=== PATIENT | female | born 1990 | race Caucasian/White ===

== ENCOUNTER 2017-10-28 11:05 | Emergency (ER) | payer OTHER, SELFPAY ==
[2017-10-28 11:16] VITALS: BP 115/77; PULSE 78; RESP 20; TEMP 36.8; O2SAT 100; BMI 22.8
--- NOTE | 2017-10-28 11:54 | ED_ITS ---
HPI - General Chief complaint: Urogenital-Female Stated complaint: 12 wks /bleeding Time Seen by Provider: 10/28/17 11:53 Source: patient Mode of arrival: ambulatory Limitations: no limitations History of Present Illness HPI Narrative: 27-year-old female Rh positive by her report approximately 12 weeks EGA here for evaluation of vaginal bleeding. Patient states that it started this morning. She has to wear pads. No urinary symptoms. Did have sexual intercourse last evening. No bowel symptoms. Minimal if any cramping. Had this same symptoms at 6 weeks EGA and had a confirmed IUP at that time. [place] Patient : Yes Related Data Home Medications Medication Instructions Recorded Confirmed VIT#96/FERROUS FUM/FA #0 02/19/16 ( Vitamin) Previous Rx's Medication Instructions Recorded hydrocodone-acetaminophen [[place]] 1 tab PO Q4HP PRN #10 tab 02/19/16 promethazine 25 mg PO Q6HP PRN #10 tab 02/19/16 hydrocodone-acetaminophen 0 tab PO Q6HP PRN #15 tab 06/12/16 metoclopramide HCl 10 mg PO TIDAC #14 tab 06/12/16 ondansetron [Zofran ODT] 4 mg SUBLINGUAL Q6HP PRN #20 odt 06/12/16 Allergies Allergy/AdvReac Type Severity Reaction Status Date / Time adhesive tape [ADHESIVE TAPE] Allergy Unknown RASH Verified 10/28/17 11:21 [place] And Derivatives Allergy Unknown VOMITING Unverified 09/19/17 12:28 [CITRUS AND DERIVATIVES] oxycodone [From PERCOCET] AdvReac Unknown VOMITING Unverified 09/19/17 12:28 Review of Systems Constitutional Denies chills, Denies fever(s), Denies lethargy and Denies weakness Gastrointestinal Gastrointestinal: Denies abdominal pain, Denies change in bowel habits, Denies diarrhea, Denies nausea and Denies vomiting Genitourinary Comments: Vaginal spotting no urinary symptoms Musculoskeletal Denies back pain, Denies muscle weakness, Denies numbness and Denies tingling Integumentary/Breasts Denies pruritus, Denies erythema, Denies rash and Denies wounds Neurologic Denies numbness, Denies tingling and Denies weakness Hematologic/Lymphatic Denies easy bruising PMFSH - Past Medical History Medical history: Reports no medical history Surgical history: Reports no surgical history Patient : Yes Psychiatric history: Reports no psych history Exam Initial Vital Signs Initial Vital Signs: Vital Signs Temperature 98.2 F 10/28/17 11:16 Pulse Rate 78 10/28/17 11:16 Respiratory Rate 20 10/28/17 11:16 Blood Pressure 115/77 10/28/17 11:16 Pulse Oximetry 100 10/28/17 11:16 Cardio Rate: regular rate Heart Sounds: no murmurs Pulses: normal peripheral pulses GI Inspection: non-distended Palpation: soft, no hepatosplenomegaly and No pulsatile mass Skin General: no rashes or lesions noted, No jaundice and No petechiae Neuro General: alert, oriented x3, gait normal and no focal motor deficits Speech: speech normal Motor: strength 5/5 throughout Sensory Exam: no sensory deficits noted Extrem General: full ROM, no clubbing, cyanosis or edema, no pedal edema and no calf tenderness Course Orders Ordered: ED Orders 10/28/17 11:42 Urinalysis and Microscopic Stat 10/28/17 11:53 ABO RH Type Stat 10/28/17 11:54 HCG Quantitative Stat 10/28/17 12:23 US OB <= 14 weeks fetus Stat Vital Signs - 8 hr 10/28/17 11:16 10/28/17 13:21 Temperature 98.2 F Pulse Rate 78 78 Respiratory Rate 20 13 Blood Pressure 115/77 Blood Pressure [Left Arm] 111/66 Pulse Oximetry 100 100 MDM - OB/Uterine Contractions Lab Data Attestation: I reviewed the patient's lab results. Lab Results 10/28/17 Range/Units 11:42 Urine Color Yellow Urine Appearance Clear Urine pH 7.5 (4.5-8.0) Ur Specific [place] 1.010 (1.000-1.035) Urine Protein Negative (Negative) Urine Glucose (UA) Negative (Normal) g/dL Urine Ketones Negative (NEGATIVE) Urine Occult Blood 3+ H (Negative) Urine Nitrate Negative (NEGATIVE) Urine Bilirubin Negative (NEGATIVE) Urine Urobilinogen 0.2 (0.2) E.U./dL Ur Leukocyte Esterase Negative (NEGATIVE) Urine RBC 1-5/hpf (0-5/HPF) Ur Squamous Epith Cells 0-1 /hpf Ur Culture Indicated? Cult not indicated Micro UA Comment Not Reportable Imaging Data Pelvic ultrasound: Radiologist's impression: OUTSIDE/PRIOR DATING DATA: Last menstrual period (LMP): 08/03/17. LMP-based estimated date of delivery (MELIA): 05/10/18. First dating scan (date and location): 09/17/17. Estimated date of delivery (MELIA) from first dating scan: 05/10/18. TECHNIQUE: Real-time scanning was performed of the fetus and maternal pelvic organs, with image documentation. Endovaginal scanning was also performed to better visualize the fetus and maternal ovaries. COMPARISON: [facility], , OB COMPLETE LESS THAN 14 WKS, 09/17/2017, 18: 46. FINDINGS: Embryo: There is a single intrauterine redemonstrated with a heart rate 158 beats per minute. The crown-rump length measures 5.9 cm corresponding to a gestational age of 12 weeks 3 days. Estimated gestational age from initial ultrasound is 12 weeks 2 days. There is a complete placenta previa noted. No turner-placental fluid collections to suggest placental abruption or subchorionic hemorrhage.. Maternal organs: Ovaries were not evaluated. Limited images through the kidneys demonstrate no hydronephrosis. IMPRESSION: 1. Single living uterine demonstrating interval growth with a calculated gestational age of 12 weeks 3 days. 2. No evidence of placenta abruption or subchorionic hematomas. 3. Placenta previa noted. The finding is nonspecific at this gestational age and continued followup is recommended. 4. Ovaries not evaluated. If there is adnexal pain or other clinical suspicion of ovarian pathology, a repeat study may be performed. Dictated by: Ken Cheatham M.D. on 10/28/2017 at 13:13 MDM Narrative Medical decision making narrative: Rh positive. No need for RhoGAM. IUP seen 12 weeks 3 days. Does have placenta previa I suspect that with intercourse last evening in the previa that this is the source of the bleeding. Discussed this with the patient. Discussed return precautions. Discussed follow-up. She expressed understanding and agreement with plan Discharge Plan Departure Patient Disposition: Home, Self-Care Clinical Impression: Threatened miscarriage Instructions: DI for Threatened Activity Restrictions/Additional Instructions: Continue all other medications. Keep all scheduled medical follow-up appointments. Return to the emergency department for any new or worsening symptoms Prescriptions: No Action VIT#96/FERROUS FUM/FA ( Vitamin) Qty: 0 RF: 0 hydrocodone-acetaminophen [[place]] 5 MG/325 MG tablet 1 tab PO Q4HP PRNQty: 10 RF: 0 promethazine 25 MG tablet 25 mg PO Q6HP PRNQty: 10 RF: 0 hydrocodone-acetaminophen 5 MG/325 MG tablet PO Q6HP PRNQty: 15 RF: 0 ondansetron [Zofran ODT] 4 MG tablet,disintegrating 4 mg Sublingual Q6HP PRNQty: 20 RF: 0 metoclopramide HCl 10 MG tablet 10 mg PO TIDAC Qty: 14 RF: 0
[2017-10-28 12:10] LABS: Appearance Urine UA CLEAR; Bilirubin Urine UA NEGATIVE (NEGATIVE); Color Urine UA YELLOW; Glucose Urine UA NEGATIVE (Normal); Ketones Urine UA NEGATIVE (NEGATIVE); Leukocyte Esterase Urine UA NEGATIVE (NEGATIVE); Nitrite Urine UA NEGATIVE (NEGATIVE); Occult Blood Urine UA 3+ (Negative); Protein Urine UA NEGATIVE (Negative); Urobilinogen Urine UA 0.2 E.U./dL (0.2); pH Urine UA 7.5 (4.5-8.0)
[2017-10-28 12:21] LABS: RBC Urine 1-5/HPF (0-5/HPF); Squamous Epithelial Cell Urine 0-1 /HPF
[2017-10-28 12:22] LABS: Culture Indicated Urine Cult Not Indicated
--- NOTE | 2017-10-28 12:23 | DI.US.S_ITS ---
PROCEDURE: US OB <= 14 WEEKS FETUS INDICATIONS: 12 weeks EGA with vaginal bleeding OUTSIDE/PRIOR DATING DATA: Last menstrual period (LMP): 08/03/17. LMP-based estimated date of delivery (MELIA): 05/10/18. First dating scan (date and location): 09/17/17. Estimated date of delivery (MELIA) from first dating scan: 05/10/18. TECHNIQUE: Real-time scanning was performed of the fetus and maternal pelvic organs, with image documentation. Endovaginal scanning was also performed to better visualize the fetus and maternal ovaries. COMPARISON: [facility], OB COMPLETE LESS THAN 14 WKS, 09/17/2017, 18:46. FINDINGS: Embryo: There is a single intrauterine redemonstrated with a heart rate 158 beats per minute. The crown-rump length measures 5.9 cm corresponding to a gestational age of 12 weeks 3 days. Estimated gestational age from initial ultrasound is 12 weeks 2 days. There is a complete placenta previa noted. No turner-placental fluid collections to suggest placental abruption or subchorionic hemorrhage.. Maternal organs: Ovaries were not evaluated. Limited images through the kidneys demonstrate no hydronephrosis. IMPRESSION: 1. Single living uterine demonstrating interval growth with a calculated gestational age of 12 weeks 3 days. 2. No evidence of placenta abruption or subchorionic hematomas. 3. Placenta previa noted. The finding is nonspecific at this gestational age and continued followup is recommended. 4. Ovaries not evaluated. If there is adnexal pain or other clinical suspicion of ovarian pathology, a repeat study may be performed. Dictated by: Ken Cheatham M.D. on 10/28/2017 at 13:13 Approved by: Ken Cheatham M.D. on 10/28/2017 at 13:19
[2017-10-28 13:21] VITALS: BP 111/66; PULSE 78; RESP 13; O2SAT 100
== END 2017-10-28 13:50 | disposition home or self-care (01) ==
PROVIDERS: Emergency Provider Emergency Medicine
DX: O20.0 Threatened abortion (principal); Z3A.12 12 weeks gestation of pregnancy
CPT/HCPCS: 76801; 76817; 81001; 81003; 81025; 99283; 99284

== ENCOUNTER 2017-12-14 19:05 | Emergency (ER) | payer OTHER, SELFPAY ==
[2017-12-14 19:17] VITALS: BP 107/69; PULSE 77; RESP 18; TEMP 36.3; O2SAT 100; BMI 23.8
--- NOTE | 2017-12-14 19:27 | ED.PREGNANCY ---
HPI - General Chief complaint: OB/Uterine Contractions Stated complaint: CRAMPING, 19 WEEKS Time Seen by Provider: 12/14/17 19:25 Source: patient Mode of arrival: ambulatory Limitations: no limitations History of Present Illness HPI Narrative: The patient is 5 para 1, currently 19 weeks . She was seen here previously, an ultrasound was done that is consistent with dates. There was evidence of placental previa on that ultrasound. She comes in tonight with 2 hr of suprapubic cramping. She has constant cramping, not spaced contractions. With this she has no nausea vomiting. Her bowel movements have been normal. She denies dysuria or hematuria. She has no back pain. She has no fever. She has no vaginal discharge or vaginal bleeding. Patient : Yes Related Data Home Medications Medication Instructions Recorded Confirmed VIT#96/FERROUS FUM/FA #0 02/19/16 ( Vitamin) Previous Rx's Medication Instructions Recorded hydrocodone-acetaminophen [[place]] 1 tab PO Q4HP PRN #10 tab 02/19/16 promethazine 25 mg PO Q6HP PRN #10 tab 02/19/16 hydrocodone-acetaminophen 0 tab PO Q6HP PRN #15 tab 06/12/16 metoclopramide HCl 10 mg PO TIDAC #14 tab 06/12/16 ondansetron [Zofran ODT] 4 mg SUBLINGUAL Q6HP PRN #20 odt 06/12/16 Allergies Allergy/AdvReac Type Severity Reaction Status Date / Time adhesive tape [ADHESIVE TAPE] Allergy Unknown RASH Verified 10/28/17 11:21 [place] And Derivatives Allergy Unknown VOMITING Unverified 09/19/17 12:28 [CITRUS AND DERIVATIVES] oxycodone [From PERCOCET] AdvReac Unknown VOMITING Unverified 09/19/17 12:28 Review of Systems Review of Systems All systems reviewed & are unremarkable except as noted in HPI and below Constitutional Denies chills, Denies fever(s), Denies headache(s), Denies lethargy and Denies weakness ENT Ears, Nose, Mouth, and Throat: Denies headache(s) Cardiovascular Denies chest pain, Denies irregular heart rhythm, Denies lightheadedness, Denies palpitations, Denies dyspnea, Denies dyspnea on exertion and Denies orthopnea Respiratory Denies cough, Denies dyspnea and Denies dyspnea on exertion Gastrointestinal Gastrointestinal: Reports abdominal pain, Denies change in bowel habits, Denies diarrhea, Denies nausea and Denies vomiting Genitourinary Denies hematuria, Denies dysuria, Denies flank pain, Denies urinary urgency, Denies vaginal discharge and Reports other (No vaginal bleeding.) Musculoskeletal Reports other (No lower extremity edema.) Integumentary/Breasts Denies erythema and Denies rash Neurologic Denies headache(s) and Denies weakness Endocrine Denies palpitations PMFSH - Past Medical History Medical history: Reports no medical history Surgical history: Reports no surgical history Patient : Yes Psychiatric history: Reports no psych history Family history: Reports no significant family history Exam Initial Vital Signs Initial Vital Signs: Vital Signs Temperature 97.4 F L 12/14/17 19:17 Pulse Rate 77 12/14/17 19:17 Respiratory Rate 18 12/14/17 19:17 Blood Pressure 107/69 12/14/17 19:17 Pulse Oximetry 100 12/14/17 19:17 Const General: cooperative, healthy appearing and well developed Nutritional Appearance: well nourished Orientation: alert, awake, oriented x3 and not confused Resp Effort & Inspection: normal respiratory effort and able to speak in complete sentences Auscultation: clear to auscultation bilaterally, no rales, no rhonchi and no wheezes Cardio Rate: regular rate Rhythm: regular rhythm Heart Sounds: S1 normal, S2 normal, no click, no gallops, no murmurs and no rubs Pulses: normal peripheral pulses GI Inspection: non-distended Palpation: soft and no hepatosplenomegaly Auscultation: normal bowel sounds and other (She has a palpable 19 week uterus. She has suprapubic tenderness without guarding rebound. heart tones were obtained by the nurse with a Doppler.) Back/Spine/Pelvis Back: No CVA tenderness Skin General: no rashes or lesions noted Extrem General: No pedal edema Course Orders Ordered: Acetaminophen (Tylenol) 650 mg PO Q4HR PRN PRN Reason: As Needed for Fever/Mild Pain Last Admin: 12/14/17 20:06 Dose: 650 mg Vital Signs - 8 hr 12/14/17 19:17 Temperature 97.4 F L Pulse Rate 77 Respiratory Rate 18 Blood Pressure 107/69 Pulse Oximetry 100 MDM - OB/Uterine Contractions Lab Data Attestation: I reviewed the patient's lab results. POC UA is normal. MDM Narrative Medical decision making narrative: Tylenol has alleviated the patient's cramping somewhat. Discharge Plan Departure Patient Disposition: Home, Self-Care Clinical Impression: Abdominal cramping affecting Instructions: DI for -- Discomforts and Remedies Activity Restrictions/Additional Instructions: Tylenol 2 tablets every 4 hr as needed for cramping. Drink plenty of water, stay well hydrated. Return here or see your doctor if you develop fever, contractions or vaginal bleeding. Prescriptions: No Action VIT#96/FERROUS FUM/FA ( Vitamin) Qty: 0 RF: 0 hydrocodone-acetaminophen [[place]] 5 MG/325 MG tablet 1 tab PO Q4HP PRNQty: 10 RF: 0 promethazine 25 MG tablet 25 mg PO Q6HP PRNQty: 10 RF: 0 hydrocodone-acetaminophen 5 MG/325 MG tablet PO Q6HP PRNQty: 15 RF: 0 ondansetron [Zofran ODT] 4 MG tablet,disintegrating 4 mg Sublingual Q6HP PRNQty: 20 RF: 0 metoclopramide HCl 10 MG tablet 10 mg PO TIDAC Qty: 14 RF: 0
[2017-12-14] MEDS: ACETAMINOPHEN 325 MG TABLET 650 MG PO (20:06)
[2017-12-14 21:17] VITALS: BP 103/63; PULSE 64; O2SAT 100
[2017-12-14 21:21] VITALS: BP 103/63; PULSE 71; RESP 18; O2SAT 100
== END 2017-12-14 21:22 | disposition home or self-care (01) ==
PROVIDERS: Emergency Provider Emergency Medicine
DX: O26.899 Other specified pregnancy related conditions, unspecified trimester (principal); R10.30 Lower abdominal pain, unspecified; Z3A.19 19 weeks gestation of pregnancy
CPT/HCPCS: 81003; 99282; 99283